=== PATIENT | female | born 1960 | race Caucasian/White ===

== ENCOUNTER 2018-04-29 16:31 | Emergency (ER) | payer BC, OTHER ==
--- NOTE | 2018-04-29 17:43 | RAD REPORT ---
EXAM DESCRIPTION: Taurus Haji (2 Views)04/29/2018 5:19 pm CLINICAL HISTORY: Cough COMPARISON: None FINDINGS: The lungs appear clear of acute infiltrate. The heart is normal size IMPRESSION: No acute abnormalities displayed
--- NOTE | 2018-04-29 17:57 | ER ---
Nurse's Notes [facility] Name: Radha Smith Age: 58 yrs Sex: Female : 1960 Arrival Date: 04/29/2018 Time: 16:34 Bed 16 Private MD: Zak Waddell Diagnosis: Acute upper respiratory infection, unspecified Presentation: 04/29 16:40 Presenting complaint: Patient states: sore throat, cough, fever, nasal and chest ss congestion x 5 days. Pt was seen two days ago at another clinic and tested negative for both flu and strep. Pt was going to try to see if she got better, but reports her fever spiked today to 104.0. Tylenol last taken at 1500 today. Transition of care: patient was not received from another setting of care. Resp Distress? No respiratory distress is noted at this time. Onset of symptoms was April 24, 2018. Risk Assessment: Do you want to hurt yourself or someone else? Patient reports no desire to harm self or others. Initial Sepsis Screen: Does the patient meet any 2 criteria? No. Patient's initial sepsis screen is negative. Does the patient have a suspected source of infection? Yes: Productive cough/pneumonia. Care prior to arrival: None. 16:40 Method Of Arrival: Ambulatory ss 16:40 Acuity: YUSUF 3 ss Triage Assessment: 16:50 Respiratory: Breath sounds are clear bilaterally. rb1 Historical: - Allergies: 16:43 Sulfa (Sulfonamide Antibiotics); ss - PSHx: 16:43 Carpal Tunnel Repair; ss - Immunization history:: Adult Immunizations unknown. - Social history:: Smoking status: Patient/guardian denies using tobacco. - Ebola Screening: : Patient denies exposure to infectious person Patient denies travel to an Ebola-affected area in the 21 days before illness onset. Screenin:50 Abuse screen: Denies threats or abuse. Nutritional screening: No deficits noted. rb1 Tuberculosis screening: No symptoms or risk factors identified. Fall Risk None identified. Assessment: 16:50 General: Appears in no apparent distress. comfortable, slender, Behavior is calm, rb1 cooperative, Reports fever for feeling ill for Tuesday. Pain: Complains of pain in headache Pain currently is 4 out of 10 on a pain scale. Neuro: Level of Consciousness is awake, alert, obeys commands, Oriented to person, place, time, situation. Cardiovascular: Capillary refill < 3 seconds is brisk in bilateral fingers. Respiratory: Reports cough that is productive, yellow/brown Airway is patent Respiratory effort is even, unlabored, Respiratory pattern is regular, symmetrical. GI: No signs and/or symptoms were reported involving the gastrointestinal system. : No signs and/or symptoms were reported regarding the genitourinary system. EENT: Reports nasal congestion sore throat. Derm: Skin is pink, warm \T\ dry. Musculoskeletal: Range of motion: intact in all extremities. 17:14 Reassessment: Pt. went to x-ray. rb1 17:43 Reassessment: Patient appears in no apparent distress at this time. Patient and/or rb1 family updated on plan of care and expected duration. Pain level reassessed. Patient is alert, oriented x 3, equal unlabored respirations, skin warm/dry/pink. 18:27 Reassessment: Patient appears in no apparent distress at this time. No changes from [facility] previously documented assessment. Vital Signs: 16:43 BP 108 / 74; Pulse 93; Resp 17; Temp 100.2(O); Pulse Ox 96% on R/A; Weight 63.5 kg; ss Height 5 ft. 11 in. (180.34 cm); 17:43 BP 117 / 72; Pulse 80; Resp 16; Pulse Ox 100% on R/A; rb1 18:28 BP 111 / 73; Pulse 81; Resp 16; Pulse Ox 98% on R/A; rb1 16:43 Body Mass Index 19.53 (63.50 kg, 180.34 cm) ED Course: 16:34 Patient arrived in ED. mr 16:34 Zak Waddell MD is Private Physician. mr 16:43 Triage completed. ss 16:43 Arm band placed on right wrist. ss 16:50 Bouchra Ling FNP-C is [facility]. kb 16:50 Jourdan Forbes MD is Attending Physician. kb 16:50 Caro Pineda, JULEE is Primary Nurse. rb1 16:50 Patient has correct armband on for positive identification. Bed in low position. Call rb1 light in reach. Side rails up X 1. Pulse ox on. NIBP on. 16:59 Flu Sent. rb1 17:13 Strep Sent. rb1 17:16 Chest Pa And Lat (2 Views) XRAY In Process Unspecified. EDMS 17:53 Throat Culture Sent. rb1 18:29 No provider procedures requiring assistance completed. Patient did not have IV access rb1 during this emergency room visit. Administered Medications: No medications were administered Outcome: 17:57 Discharge ordered by . kb 18:26 Discharged to home ambulatory, with family. rb1 18:26 Condition: stable 18:26 Discharge instructions given to patient, Instructed on discharge instructions, follow up and referral plans. Demonstrated understanding of instructions, follow-up care, Prescriptions given X none 18:31 Patient left the ED. rb1 Signatures: Dispatcher [employer] EDMO Bouchra Ling, PPAP COORDINATOR-C PPAP COORDINATOR-Aster Jay mr Elina Gongora, RN RN Caro Pineda, RN RN rb1
--- NOTE | 2018-04-29 17:57 | EDPHYS ---
Physician Documentation [facility] Name: Radha Smith Age: 58 yrs Sex: Female : 1960 Arrival Date: 04/29/2018 Time: 16:34 Bed 16 Private MD: Zak Waddell ED Physician Jourdan Forbes HPI: 04/29 17:28 This 58 yrs old Female presents to ER via Ambulatory with complaints of kb Fever, Cough, Congestion. 17:28 The patient or guardian reports cough, that is intermittent, described as mild, with no kb sputum, flu symptoms, low-grade fever, myalgias. Onset: The symptoms/episode began/occurred 6 day(s) ago. Severity of symptoms: At their worst the symptoms were moderate, in the emergency department the symptoms are unchanged. Modifying factors: The symptoms are alleviated by nothing, the symptoms are aggravated by nothing. Associated signs and symptoms: Pertinent positives: fever, sore throat, Pertinent negatives: chest pain, diarrhea, ear ache, nausea, rhinorrhea, vomiting. The patient has not experienced similar symptoms in the past. The patient has been recently seen at an urgent care, this week, for similar complaints, labs were performed. Pt reports sore throat, congestion, body aches and fever since Tuesday. WEnt to on and tested negative for flu and strep. Fever had been 100-101 during the week, but spiked to 104 today so she wanted to get reevaluated. Historical: - Allergies: 16:43 Sulfa (Sulfonamide Antibiotics); ss - PSHx: 16:43 Carpal Tunnel Repair; ss - Immunization history:: Adult Immunizations unknown. - Social history:: Smoking status: Patient/guardian denies using tobacco. - Ebola Screening: : Patient denies exposure to infectious person Patient denies travel to an Ebola-affected area in the 21 days before illness onset. ROS: 17:28 Neck: Negative for injury, pain, and swelling, Cardiovascular: Negative for chest pain, kb palpitations, and edema, Abdomen/GI: Negative for abdominal pain, nausea, vomiting, diarrhea, and constipation, Back: Negative for injury and pain, MS/Extremity: Negative for injury and deformity, Skin: Negative for injury, rash, and discoloration, Neuro: Negative for headache, weakness, numbness, tingling, and seizure. 17:28 Constitutional: Positive for body aches, fatigue, fever, malaise, Negative for poor PO intake, weight loss. 17:28 ENT: Positive for sore throat. 17:28 Respiratory: Positive for cough, Negative for dyspnea on exertion, hemoptysis, orthopnea, pleurisy, shortness of breath, sputum production, wheezing. Exam: 17:28 Constitutional: This is a well developed, well nourished patient who is awake, alert, kb and in no acute distress. Head/Face: Normocephalic, atraumatic. ENT: Nares patent. No nasal discharge, no septal abnormalities noted. Tympanic membranes are normal and external auditory canals are clear. Oropharynx with no redness, swelling, or masses, exudates, or evidence of obstruction, uvula midline. Mucous membranes moist. Neck: Trachea midline, no thyromegaly or masses palpated, and no cervical lymphadenopathy. Supple, full range of motion without nuchal rigidity, or vertebral point tenderness. No Meningismus. Chest/axilla: Normal chest wall appearance and motion. Nontender with no deformity. No lesions are appreciated. Cardiovascular: Regular rate and rhythm with a normal S1 and S2. No gallops, murmurs, or rubs. Normal PMI, no JVD. No pulse deficits. Respiratory: Lungs have equal breath sounds bilaterally, clear to auscultation and percussion. No rales, rhonchi or wheezes noted. No increased work of breathing, no retractions or nasal flaring. Abdomen/GI: Soft, non-tender, with normal bowel sounds. No distension or tympany. No guarding or rebound. No evidence of tenderness throughout. Skin: Warm, dry with normal turgor. Normal color with no rashes, no lesions, and no evidence of cellulitis. MS/ Extremity: Pulses equal, no cyanosis. Neurovascular intact. Full, normal range of motion. Neuro: Awake and alert, GCS 15, oriented to person, place, time, and situation. Cranial nerves II-XII grossly intact. Motor strength 5/5 in all extremities. Sensory grossly intact. Cerebellar exam normal. Normal gait. Vital Signs: 16:43 BP 108 / 74; Pulse 93; Resp 17; Temp 100.2(O); Pulse Ox 96% on R/A; Weight 63.5 kg; ss Height 5 ft. 11 in. (180.34 cm); 17:43 BP 117 / 72; Pulse 80; Resp 16; Pulse Ox 100% on R/A; rb1 18:28 BP 111 / 73; Pulse 81; Resp 16; Pulse Ox 98% on R/A; rb1 16:43 Body Mass Index 19.53 (63.50 kg, 180.34 cm) ss MDM: 16:50 Patient medically screened. kb 17:26 Data reviewed: vital signs, nurses notes. Data interpreted: Pulse oximetry: on room air kb is 96 %. Interpretation: normal. 17:56 Counseling: I had a detailed discussion with the patient and/or guardian regarding: the kb historical points, exam findings, and any diagnostic results supporting the discharge/admit diagnosis, lab results, radiology results, the need for outpatient follow up, a family practitioner, to return to the emergency department if symptoms worsen or persist or if there are any questions or concerns that arise at home. 04/29 16:50 Order name: Flu; Complete Time: 17:54 kb 04/29 17:04 Order name: Strep; Complete Time: 17:44 kb 04/29 16:50 Order name: Chest Pa And Lat (2 Views) XRAY; Complete Time: 17:44 kb 04/29 17:37 Order name: Throat Culture EDMS Administered Medications: No medications were administered Disposition: 04/29/18 17:57 Discharged to Home. Impression: Acute upper respiratory infection, unspecified. - Condition is Stable. - Discharge Instructions: Upper Respiratory Infection, Pediatric, Viral Respiratory Infection, [id number]. - Medication Reconciliation Form, Thank You Letter, Antibiotic Education, Prescription Opioid Use form. - Follow up: Emergency Department; When: As needed; Reason: Worsening of condition. Follow up: Private Physician; When: 2 - 3 days; Reason: Recheck today's complaints, Continuance of care, Re-evaluation by your physician. Addendum: 05/03/2018 21:54 Co-signature as Attending Physician, Jourdan Forbes MD. g s Signatures: Dispatcher [employer] EDMS Bouchra Lnig FNP-C FNP-Ckb Smirch, Shelby, RN RN ss Barber, Rebecca, RN RN rb1 Starr, Gregory, MD MD Corrections: (The following items were deleted from the chart) 04/29 18:31 17:57 04/29/2018 17:57 Discharged to Home. Impression: Acute upper respiratory rb1 infection, unspecified. Condition is Stable. Forms are Medication Reconciliation Form, Thank You Letter, Antibiotic Education, Prescription Opioid Use. Follow up: Emergency Department; When: As needed; Reason: Worsening of condition. Follow up: Private Physician; When: 2 - 3 days; Reason: Recheck today's complaints, Continuance of care, Re-evaluation by your physician. kb
== END 2018-04-29 18:31 | disposition home or self-care (01) ==
LOC: ER 16:31
DX: J06.9 Acute upper respiratory infection, unspecified (principal); Z88.2 Allergy status to sulfonamides
CPT/HCPCS: 71046; 87070; 87081; 87804; 99284